=== PATIENT | female | born 1990 | race Caucasian/White ===

== ENCOUNTER → 2020-02-22 12:46 | Outpatient (CLI) | payer MEDICAID, SELFPAY ==
--- NOTE | 2020-02-22 12:50 | US_ITS ---
STUDY: SECOND AND THIRD TRIMESTER OBSTETRICAL ULTRASOUND - LIMITED REASON FOR EXAM: Female, 29 years old. Dating LMP: Unknown. PRIOR ULTRASOUND: None. TECHNIQUE: Transabdominal ultrasound evaluation was performed. FINDINGS: There is a single intrauterine fetus. The fetus is in a cephalic presentation. There is demonstrated cardiac activity with a heart rate of 144 bpm. There is a normal amniotic fluid volume. The placenta is posterior in location and is not low lying. There are Grade 0 placental changes. The cervix is closed and measures 3.2 cm in length. BIOMETRY: BPD: 3.75 cm: 17 weeks, 3 days HC: 13.45 cm: 16 weeks, 6 days AC: 10.96 cm: 16 weeks, 5 days FL: 2.06 cm: 16 weeks, 1 days age by current US: 16 weeks, 5 days. JACQUELINE by current US: 08/03/2020. Estimated weight: 160 grams, +/- 24 grams. US/OB Limited With Biometrics IMPRESSION: Single live intrauterine gestation at approximately sixteen weeks and five days based on the current ultrasound. Electronically Signed: Getachew Clarke, at 16:14 EDT Tel , Service support ,
== END ==
PROVIDERS: Referring Provider Obstetrics & Gynecology; Visit Provider Obstetrics & Gynecology
DX: Z36.87 Encounter for antenatal screening for uncertain dates (principal); Z3A.16 16 weeks gestation of pregnancy
CPT/HCPCS: 76816

== ENCOUNTER 2021-02-07 18:56 | Emergency (ER) | payer MEDICAID, SELFPAY ==
[2021-02-07 18:57] VITALS: BP 160/96; PULSE 128; RESP 16; TEMP 36.4; O2SAT 98; BMI 37.4
[2021-02-07 20:16] LABS: Bacteria 0 SEEN /hpf (None Seen); Red Blood Cells-Urine 0 SEEN /hpf (0-5)
[2021-02-07 20:18] LABS: Color, Urine Yellow (Yellow); Glucose, Dipstick Normal (Normal); Ketone-Dipstick 5 mg/dl (Negative); Leukocyte Esterase-Dipstick 100 /ul (Negative); Nitrite-Dipstick Negative (Negative); Occult Blood-Urine Negative /ul (Negative); Protein-Dipstick 15 mg/dl (Negative); Urine Bilirubin Dipstick Negative (Negative); Urine Clarity Cloudy (Clear); Urine Urobilinogen Normal (Normal)
[2021-02-07 20:38] LABS: ALB/GLOB Ratio 0.6 RATIO (0.9-2.4); AST(SGOT) 45 U/L (15-37); Alanine Aminotransfer ALT/SGPT 43 U/L (13-56); Albumin, Serum 3.1 g/dL (3.2-5.0); Alkaline Phosphatase 153 U/L (45-117); Anion Gap 4 (5-15); BUN 12 mg/dL (7-18); BUN/Creat Ratio 13.2 RATIO (10-20); Calcium,Total 9.1 mg/dL (8.5-10.1); Chloride 106 mmol/L (98-107); Creatinine, Serum 0.91 mg/dL (0.55-1.02); EST Glomerular Filtration Rate 77 mL/min (>60); Est Glom Filt Rate - Afr Amer 93 mL/min (>60); Estimated Creatinine Clearance 87.11 ml/min; Globulin 4.8 g/dL (2.2-4.2); Glucose 79 mg/dL (74-106); Potassium 4.7 mmol/L (3.5-5.1); Protein, Total 7.9 g/dL (6.4-8.2); Sodium Level 135 mmol/L (136-145)
[2021-02-07 20:44] LABS: Squamous Epithelial Cells - UA 10-25 SEEN /hpf (5-10); White Blood Cells 5-10 SEEN /hpf (0-5)
[2021-02-07 20:45] LABS: Mucous, Urine 2+ /hpf (<or=2+)
[2021-02-07 20:50] LABS: Absolute Lymphocyte Count 1.86 X10^3/uL (0.83-4.51); Absolute Neutrophil Count 6.1 X10^3/uL (2.0-7.7); Basophil# 0.04 X10^3/uL; Basophil% 0.5 % (0-1); Eosinophil# 0.13 X10^3/uL; Eosinophils% 1.5 % (0-5); Hematocrit 33.4 % (37-47); Hemoglobin 10.1 g/dL (12.0-15.0); Lymphocyte # 1.86 X10^3/ul (0.83-4.51); Lymphocyte % 21.1 % (19-41); Mean Corp Hgb Conc 30.2 g/dL (32-36); Mean Corpuscular Hgb 22.3 pg (27.0-32.0); Mean Corpuscular Volume 73.7 fL (81-99); Mean Platelet Vol. 8.2 fl (6.2-12.0); Monocyte# 0.63 X10^3/uL; Monocyte% 7.2 % (0-10); NRBC Flagged by Analyzer 0 % (0-5); Neutrophil # 6.06 X10^3/uL (2.7-7.7); Neutrophil % 68.8 % (47-70); Platelet Count 459 K/mm3 (150-450); RBC Distribution Width CV 16.2 % (11.6-14.6); RBC Distribution Width SD 42.7 fl (35.1-43.9); Red Blood Count 4.53 M/mm3 (4.2-5.4); White Blood Count 8.8 K/mm3 (4.4-11.0)
[2021-02-07] MEDS: Lidocaine 1% (20 ml mdv) 20 ML Vial INFILT (20:58)
[2021-02-07 21:00] VITALS: RESP 17
[2021-02-07 21:05] LABS: Internal QC Validated? YES +Cl - CLEAR BKGD; Pregnancy, Serum, hCG Quali. NEGATIVE Negative
--- NOTE | 2021-02-07 21:56 | EDS_ITS ---
HPI History of Present Illness Chief Complaint: General Illness Informant: patient Onset/Context/Timing Onset: Month(s) (2) Context: Gradual Onset Timing: Continuous Quality: Burning Location: Left breast Worsened by: Nothing Relieved by: Nothing Narrative Narrative: Patient presents with abscesses and swelling all over. Patient states she has burning pain in her left breast. Patient denies any fevers or chills. Patient states her symptoms have been constant for the past 2 months. Patient states it is having swelling all over. Patient admits to increased appetite. Pressure patient admits to some pain and stiffness that is worse in the mornings. Patient denies any chest pain or shortness of breath. Patient denies any nausea or vomiting. Patient admits to decreased urine output. PFSH PFSH Home Medications cephalexin 500 mg PO Q6 #40 capsule 02/07/21 [Rx Last Taken Unknown] Allergy/AdvReac Type Severity Reaction Status Date / Time acetaminophen [From Vicodin] Allergy Swelling Verified 02/07/21 19:00 hydrocodone [From Vicodin] Allergy Swelling Verified 02/07/21 19:00 Surgical History (Updated 02/07/21 @ 22:[address] Joce Castro DO) History of appendectomy Social History Smoking Status: Current every day smoker tobacco type: cigarettes ROS ROS ED Constitutional Constitutional ED: Denies chills or fever(s) Eyes Eyes: Denies blurry vision or change in vision ENT ENT ED: Denies rhinorrhea or sore throat Cardiovascular Cardiovascular: Denies chest pain or palpitations Respiratory/Chest Respiratory/Chest: Denies cough or dyspnea Gastrointestinal Gastrointestinal: Denies nausea or vomiting Genitourinary Genitourinary ED: Reports other Details: Decreased urine output ; Denies dysuria or hematuria Musculoskeletal Musculoskeletal: Denies back pain or neck pain Integumentary Reports abscess; Denies rash Neurologic Neurologic: Denies headache(s) or weakness Allergic/Immunologic Allergic/Immunologic ED: Denies mouth swelling or urticaria EXAM Physical Exam Const Vital Signs: 02/07/21 18:57 02/07/21 19:08 02/07/21 21:00 Temperature 97.6 F L Temperature Source Temporal Pulse Rate 128 H Respiratory Rate 16 17 Respiratory Effort Normal Non-Labored Blood Pressure 160/96 H Blood Pressure Mean 117 Pulse Ox 98 Oxygen Delivery Method Room Air Room Air Positive well nourished, well developed and obese General Appearance ED: well developed Nutritional Appearance: obese HEENT Reports moist mucous membranes Neck supple and no JVD Resp normal respiratory effort and clear to auscultation bilaterally Cardio regular rhythm Rate: tachycardic GI normal to inspection, nondistended, normoactive bowel sounds and non-tender Palpation: soft Neuro oriented x3, CN's II-XII intact bilaterally and no sensory deficits noted Sensorium / Orientation: alert Motor Exam: strength 5/5 throughout Psych mental status grossly normal Skin Skin Narrative: There is erythema and warmth over the inferior aspect of the left breast. There does appear to be some fluctuance on the inferior aspect of the areola. There is no active discharge or drainage. There are no masses palpated. MDM MDM MDM Narrative Medical decision making narrative: Patient was given a dose of IV Unasyn. CBC shows a slight anemia with a hemoglobin of 10.1 and hematocrit of 33.4. Platelets were slightly elevated at 459. Comprehensive metabolic profile was essentially within normal limits. Serum hCG was negative. Urinalysis does not show any evidence of urinary tract infection. Patient initially agreed to incision and drainage of the abscess in her left breast. However, patient later stated she did not want to have this done and wanted to go home. Patient was given a prescription for Keflex. Patient was instructed use warm compresses. Patient was instructed to follow-up with her primary care physician in 3 to 5 days. Patient was instructed return if worse in any way. Patient understood and was agreeable with the plan. All questions were answered. Lab Data Attestation: I reviewed the patient's lab results. Labs: Laboratory Results - last 24 hr 02/07/21 02/07/21 02/07/21 20:05 20:05 20:10 WBC Cancelled Corrected WBC Cancelled RBC Cancelled Hgb Cancelled Hct Cancelled MCV Cancelled MCH Cancelled MCHC Cancelled RDW Std Deviation Cancelled RDW Coeff of Evaristo Cancelled Plt Count Cancelled MPV Cancelled Immature Gran % (Auto) Cancelled Neut % (Auto) Cancelled Lymph % (Auto) Cancelled Mcdonough % (Auto) Cancelled Eos % (Auto) Cancelled Baso % (Auto) Cancelled Absolute Neuts (auto) Cancelled Absolute Lymphs (auto) Cancelled Total Counted Cancelled Neutrophils % (Manual) Cancelled Band Neutrophils % Cancelled Lymphocytes % (Manual) Cancelled Monocytes % (Manual) Cancelled Eosinophils % (Manual) Cancelled Basophils % (Manual) Cancelled Metamyelocytes % Cancelled Myelocytes % Cancelled Promyelocytes % Cancelled Blast Cells % Cancelled Plasma Cell % (Manual) Cancelled Other Cells % Cancelled Nucleated RBC % Cancelled Nucleated RBCs/100 WBC Cancelled Differential Comment Cancelled Diff Path Review Cancelled Hypersegmented Neuts Cancelled Atypical Lymphocytes Cancelled Reactive Lymphocytes Cancelled Smudge Cells Cancelled Toxic Granulation Cancelled Toxic Vacuolation Cancelled Dohle Bodies Cancelled Jermaine Rods Cancelled Platelet Estimate Cancelled Plt Morphology Comment Cancelled RBC Morphology Cancelled Polychromasia Cancelled Hypochromasia Cancelled Poikilocytosis Cancelled Basophilic Stippling Cancelled Anisocytosis Cancelled Microcytosis Cancelled Macrocytosis Cancelled Spherocytes Cancelled Sickle Cells Cancelled Target Cells Cancelled Tear Drop Cells Cancelled Ovalocytes Cancelled Stomatocytes Cancelled [place] Bodies Cancelled [place] Cells Cancelled Bite Cells Cancelled Crenated Cell Cancelled Acanthocytes (Spur) Cancelled Rouleaux Cancelled Schistocytes Cancelled Sodium 135 L Potassium 4.7 Chloride 106 Carbon Dioxide 25.0 Anion Gap 4 L BUN 12 Creatinine 0.91 Estim Creat Clear Calc 87.11 Est GFR (MDRD) Af Amer 93 Est GFR (MDRD) Non-Af 77 BUN/Creatinine Ratio 13.2 Glucose 79 Calcium 9.1 Total Bilirubin 0.30 AST 45 H ALT 43 Alkaline Phosphatase 153 H Total Protein 7.9 Albumin 3.1 L Globulin 4.8 H Albumin/Globulin Ratio 0.6 L Serum , Qual Urine Color Yellow Urine Clarity Cloudy Urine pH 7.0 Ur Specific [place] 1.010 Urine Protein 15 H Urine Glucose (UA) Normal Urine Ketones 5 H Urine Occult Blood Negative Urine Nitrite Negative Urine Bilirubin Negative Urine Urobilinogen Normal Ur Leukocyte Esterase 100 H Urine RBC 0 SEEN Urine WBC 5-10 SEEN Ur Squamous Epith Cells 10-25 SEEN Urine Bacteria 0 SEEN Urine Mucus 2+ 02/07/21 02/07/21 20:43 20:43 WBC 8.8 Corrected WBC RBC 4.53 Hgb 10.1 L Hct 33.4 L MCV 73.7 L MCH 22.3 L MCHC 30.2 L RDW Std Deviation 42.7 RDW Coeff of Evaristo 16.2 H Plt Count 459 H MPV 8.2 Immature Gran % (Auto) 0.900 Neut % (Auto) 68.8 Lymph % (Auto) 21.1 Mcdonough % (Auto) 7.2 Eos % (Auto) 1.5 Baso % (Auto) 0.5 Absolute Neuts (auto) 6.1 Absolute Lymphs (auto) 1.86 Total Counted Neutrophils % (Manual) Band Neutrophils % Lymphocytes % (Manual) Monocytes % (Manual) Eosinophils % (Manual) Basophils % (Manual) Metamyelocytes % Myelocytes % Promyelocytes % Blast Cells % Plasma Cell % (Manual) Other Cells % Nucleated RBC % 0 Nucleated RBCs/100 WBC Differential Comment Diff Path Review Hypersegmented Neuts Atypical Lymphocytes Reactive Lymphocytes Smudge Cells Toxic Granulation Toxic Vacuolation Dohle Bodies Jermaine Rods Platelet Estimate Plt Morphology Comment RBC Morphology Polychromasia Hypochromasia Poikilocytosis Basophilic Stippling Anisocytosis Microcytosis Macrocytosis Spherocytes Sickle Cells Target Cells Tear Drop Cells Ovalocytes Stomatocytes [place] Bodies [place] Cells Bite Cells Crenated Cell Acanthocytes (Spur) Rouleaux Schistocytes Sodium Potassium Chloride Carbon Dioxide Anion Gap BUN Creatinine Estim Creat Clear Calc Est GFR (MDRD) Af Amer Est GFR (MDRD) Non-Af BUN/Creatinine Ratio Glucose Calcium Total Bilirubin AST ALT Alkaline Phosphatase Total Protein Albumin Globulin Albumin/Globulin Ratio Serum , Qual NEGATIVE Urine Color Urine Clarity Urine pH Ur Specific [place] Urine Protein Urine Glucose (UA) Urine Ketones Urine Occult Blood Urine Nitrite Urine Bilirubin Urine Urobilinogen Ur Leukocyte Esterase Urine RBC Urine WBC Ur Squamous Epith Cells Urine Bacteria Urine Mucus Discharge Plan Triage Chief Complaint: General Illness ED Provider: Joce Castro Dx/Rx/DC Orders Clinical Impression: Cellulitis of left breast Instructions: ED Cellulitis, ED Mastitis Prescriptions: New cephalexin [cephalexin] 500 MG capsule 500 mg PO Q6 Qty: 40 RF: 0 Primary Care Provider: Care Physician,No Primary Referrals: Gina Patterson [NON-STAFF] - 3-5 Days Care Physician,No Primary [Primary Care Provider] - Disposition Disposition: Home, Self Care Discharge Date/Time: 02/07/21 22:07
--- NOTE | 2021-02-07 22:02 | ED.RN ---
Pt refuses to stay. Pt wants iv out and is not waiting for i and d. aware. he gave rx for atb
[2021-02-07 22:05] VITALS: BP 130/88; PULSE 100; RESP 17; O2SAT 98
== END 2021-02-07 22:07 | disposition home or self-care (01) ==
PROVIDERS: Emergency Provider Emergency Medicine
DX: N61.0 Mastitis without abscess (principal); D64.9 Anemia, unspecified; E66.9 Obesity, unspecified; F17.210 Nicotine dependence, cigarettes, uncomplicated
CPT/HCPCS: 80053; 81001; 84703; 85025; 96365; 99283; J7050; A4216; J0295

== ENCOUNTER 2024-07-13 07:33 | Emergency (ER) | payer MEDICAID, SELFPAY ==
[2024-07-13 07:34] VITALS: BP 146/103; PULSE 107; RESP 16; TEMP 36.6; O2SAT 98; BMI 37.8
--- NOTE | 2024-07-13 08:00 | EX.ED.DYSGE1 ---
HPI History of Present Illness Chief Complaint: Substance Abuse Narrative Narrative: Chief complaint and HPI:Substance abuse. 33-year-old female with no significant past medical history other than polysubstance abuse presents for evaluation of substance abuse. The patient states that yesterday she smoked speed as well as methamphetamine. She states she was up all day and night. She states that she began feeling tired this morning so she went and laid down to sleep. She states she then woke up with 2 friends around her and the police outside the [facility]. Per report, police were called due to concerns of an unresponsive episode. Patient was alert and oriented when police arrived. Patient denies any unresponsive episode or concern for overdose. She states she went to take a nap and states nobody even tried to wake her up. She states that one of the 2 friends was a girl she barely knows. She states that she is out there and feels that she is the one that called the vocational training teacher. Patient is alert and oriented x 4. Patient denies wanting any help for her substance abuse. She states she does not want to be here. She denies any fever, chills, shortness of breath, chest pain abdominal pain, nausea, vomiting. Review of systems: See HPI Medications: As listed on the chart Allergies: As listed on the chart PFSH: Per chart Vital signs: As listed on the chart. Reviewed. Physical exam: Gen: A&O x4, NAD Head: Normocephalic, atraumatic Eyes: No sclera icterus, conjunctiva clear, PERRL, EOMI ENT: Moist mucous membranes Neck: Trachea midline, No JVD CV: RRR, no murmurs, no peripheral edema Resp: Lungs CTA BL, no w/r/c GI: Abd soft, non-distended, non-tender, no r/r/g Musc: Full ROM, no deformity Skin: Warm, dry Neuro: Alert, oriented, grossly intact, sensation intact Psych: Cooperative, appropriate mood and affect but mildly [facility] ?Medication ?Instructions ?Recorded ?Last Taken ?Type cephalexin 500 mg capsule 500 mg PO Q6 #40 CAPSULES 02/07/21 Unknown Rx Allergy/AdvReac Type Severity Reaction Status Date / Time acetaminophen (From Vicodin) Allergy Swelling Verified 07/13/24 07:37 hydrocodone (From Vicodin) Allergy Swelling Verified 07/13/24 07:37 Surgical History (Updated 02/07/21 @ 22:[address] Joce Castro DO) History of appendectomy Social History Smoking Status: Current every day smoker tobacco type: cigarettes EXAM Physical Exam Const Vital Signs: 07/13/24 07:34 Temperature 97.8 F Temperature Source Temporal Pulse Rate 107 H Respiratory Rate 16 Blood Pressure 146/103 H Blood Pressure Mean 117 Pulse Ox 98 Oxygen Delivery Method Room Air MDM MDM MDM Narrative Medical decision making narrative: 33-year-old female with past medical history of polysubstance abuse presents for evaluation of substance abuse as well as concern for possible unresponsive episode. Patient denies any unresponsive episode or concern for overdose. She states she laid down to take a nap. On police arrival, patient was alert and oriented x 4. No witnessed unresponsive episode. Patient states she does not want to be here. She is currently alert and oriented x 4. Physical exam is unremarkable. At this point in time, I do have a low suspicion for unresponsive episode as patient was likely sleeping. Patient declined resources or help for polysubstance abuse such as inpatient placement or outpatient resources. Patient was given water to drink. Tolerated this well. Patient stable to discharge home as she has a safe ride home. Impression: 1. Polysubstance abuse-speed and methamphetamine 2. Concern for unresponsive episode Discharge Plan Triage Chief Complaint: Substance Abuse ED Provider: Deacon Mayo Dx/Rx/DC Orders Clinical Impression: Polysubstance abuse Instructions: Addiction: Your Treatment Options, Addiction Recovery Counseling, ED Drug Abuse Prescriptions: No Action cephalexin [cephalexin] 500 MG capsule 500 mg PO Q6 Qty: 40 0RF Primary Care Provider: Care Physician,No Primary Referrals: Austin Molina MD [Med Staff - Active Staff] - 3-5 Days Care Physician,No Primary [Primary Care Provider] - Activity Restrictions/Additional Instructions: Follow-up with primary care physician if needed. Return back to the ED if needed Print Language: Bengali Disposition Disposition: Home, Self Care
[2024-07-13 08:44] VITALS: BP 137/89; PULSE 94; RESP 16; TEMP 36.4; O2SAT 99
== END 2024-07-13 08:45 | disposition home or self-care (01) ==
PROVIDERS: Emergency Provider Surgery; Visit Provider Surgery
DX: F15.10 Other stimulant abuse, uncomplicated (principal); F17.210 Nicotine dependence, cigarettes, uncomplicated
CPT/HCPCS: 99284